=== PATIENT | female | born 1995 | race Caucasian/White ===

== ENCOUNTER 2018-08-27 17:39 | Outpatient (REF) | payer MEDICAID, SELFPAY ==
[2018-08-27 19:50] LABS: Abs Immature Grans 0.03 k/cumm (0.0-0.09); Absolute Basophil Count 0.03 k/cumm (0.0-0.2); Absolute Eosinophil Count 0.13 k/cumm (0.0-0.7); Absolute Lymphocyte Count 0.95 k/cumm (1.2-3.4); Absolute Monocyte Count 0.83 k/cumm (0.11-0.7); Absolute Neutrophil Count 4.95 k/cumm (1.2-6.7); Basophils % 0.4; Eosinophils % 1.9; HCT 42.6 % (36.0-46.0); HGB 13.6 g/dL (12.0-15.5); Immature Grans % 0.4; Lymphocytes % 13.7; Mean Corp. HGB Concentration 31.9 g/dL (32.0-36.0); Mean Corpuscular Volume 90.8 fL (80-95); Mean Platelet Volume 10.8 fL (8.0-11.0); Neutrophils % 71.6; Platelet Count 253 x1000/uL (130-400); RBC 4.69 m/cumm (4.00-5.20); RBC Distribution Width 14.6 % (11.7-14.6); White Blood Cell Count 6.92 k/cumm (4.4-10.8)
[2018-08-27 20:00] LABS: Mono Screening Negative (Negative)
== END 2018-08-27 17:59 ==
LOC: NCHCN 17:39
PROVIDERS: PCP Family Medicine; Visit Provider Family Medicine
DX: R50.9 Fever, unspecified (principal); D64.9 Anemia, unspecified
CPT/HCPCS: 85025; 86308

== ENCOUNTER 2018-09-08 13:04 | Emergency (ER) | payer MEDICAID, SELFPAY ==
[2018-09-08 13:08] VITALS: BP 122/64; PULSE 116; RESP 18; TEMP 36.5; O2SAT 95
--- NOTE | 2018-09-08 13:15 | ED.GENADUL_ITS ---
Discharge Plan Disposition Patient Disposition: HOME Condition: Stable Discharge Details Chief Complaint: RespSymp Clinical Impression: Influenza Reason For Visit: sinus pain / chills Primary Care Provider: Amrit Gao ED Provider: Ana Ray Home Meds and New Rx's Prescriptions: Continued fluoxetine [Prozac] 20 MG capsule 20 mg PO DAILY RF: 0 diphenhydramine HCl [Benadryl] 25 mg Capsule PRNRF: 0 Discharge Instructions Instructions: Influenza (ED) Additional Instructions: Please return immediately to the emergency department if you develop any new or worsening symptoms or if you become otherwise concerned. It is extremely important that you make an appointment to be seen in follow-up for this visit as soon as possible by your primary care doctor. Stand Alone Forms: Work Release Referrals: Amrit Gao [Primary Care Provider] - Discharge Data Discharge Date/Time-TO BE ENTERED AT DEPARTURE: 09/08/18 14:46 Medical Decision Making Della Kirby is a 23 y/o woman with history of depression presenting to the emergency department with 2 weeks of cough, generalized body aches, sore throat, headache worse in the past few days. On exam patient is well and nontoxic appearing. She is no longer tachycardic with heart rate 84, lungs are clear. Throat is mildly erythematous. Concern for influenza, strep, pneumonia, other upper respiratory infection. Exam/history is not consistent with meningitis, sepsis, other acute emergent life-threatening process. Plan for flu swab, rapid strep, chest x-ray, ibuprofen. Will reassess. Chest x-ray personally reviewed by me in conjunction with radiology: No acute process Strep negative. Influenza positive. Given time course, doubt significant benefit from Tamiflu, will hold. No indication for further testing, admission at this time. I had a lengthy discussion with patient regarding her results, home care, return to emergency department precautions, and importance of outpatient follow-up with her primary care doctor. She verbalizes understanding of plan and is amenable. Medical Records Medical records reviewed: Yes I reviewed the patient's medical records. HPI General Mode of arrival: ambulatory . Date/Time Provider Initiated Documentation: 09/08/18 13:14 . Limitations to Documentation: no limitations . Information obtained by: patient, RN notes reviewed and old records reviewed . HPI Narrative: Della Kirby is a 23-year-old woman with a history of depression presenting to the emergency department with cough and malaise. Patient reports that 2-1/2 weeks ago she had fevers, cough, and was seen by her primary care doctor. She had a negative flu swab at that time. She was sent home, and told to return if symptoms worsened. Patient reports that she did have a few days where she began to feel better, and she did not return to her PCP, however in the past 3-4 days her symptoms have worsened and seem worse than when they began 2-1/2 weeks ago now. Patient reports generalized body aches, sore throat, headache. Not the worst headache of her life, head pain is not worse than throat pain. She has had intermittent fevers. Last ibuprofen she took was yesterday. She reports this does not seem to help her symptoms much. Patient reports her cough is severe and dry. She denies shortness of breath. She has nausea but no vomiting, no diarrhea, no rash. Patient reports decreased appetite recently with some decreased p.o. intake. No recent travel. Reports that she used to smoke cigarettes, drinks alcohol occasionally, and smokes marijuana, no other drug use. Related Data Home Medications Medication Instructions Recorded Confirmed fluoxetine [Prozac] 20 mg PO DAILY 11/07/17 09/08/18 diphenhydramine HCl [Benadryl] PRN 09/08/18 Allergies Allergy/AdvReac Type Severity Reaction Status Date / Time No Known Allergies Allergy Unverified 09/08/18 13:11 General Stated Complaint: RespSymp SWEETIE: 4 Review of Systems Review of Systems Constitutional: denies fevers Eyes: denies eye pain ENT: denies facial pain, dental pain, reports sore throat Cardiovascular: denies chest pain Respiratory: denies SOB, reports cough GI: denies abdominal pain, vomiting, diarrhea : denies flank pain MSK: denies back pain, neck pain, arthralgias, reports generalized myalgias Skin: denies rash Neuro: denies headaches, numbness, weakness [facility] Social History Smoking and Tabacco status: Never Exam Narrative Exam Narrative: Constitutional: well and [id number], pleasant, conversing normally HENT: head atraumatic/normocephalic/normal inspection, mucous membranes moist, mild erythema of the posterior pharynx, no exudate or tonsillar edema Eyes: conjunctiva normal, sclera normal, pupils 3mm b/l Neck: no stridor, normal ROM, trachea midline Chest: normal inspection Resp: normal work of breathing, LCTAB Cardio: normal rate, normal rhythm, no murmur appreciated GI: abdomen soft, non-tender, non-distended Back: normal inspection, no rash Skin: warm, dry, normal color, no rash Neuro: alert, not altered, grossly non-focal, normal tone Ext: no edema, no posterior calf TTP Psych: normal mood, normal affect, normal behavior Course Vital Signs Temperature 36.5 C 09/08/18 13:08 Pulse 116 H 09/08/18 13:08 Respiratory Rate 18 09/08/18 13:08 Blood Pressure 122/64 09/08/18 13:08 Pulse Oximetry 95 09/08/18 13:08 Temperature 36.5 C 09/08/18 13:08 Temperature Source Temporal Artery Scan 09/08/18 13:08 Pulse 116 H 09/08/18 13:08 Respiratory Rate 18 09/08/18 13:08 Blood Pressure 122/64 09/08/18 13:08 Blood Pressure Position Sitting 09/08/18 13:08 Pulse Oximetry 95 09/08/18 13:08 Oxygen Delivery Method Room Air 09/08/18 13:08 Oxygen Flow Rate 0 09/08/18 13:08 Pain Level 7 09/08/18 13:08
--- NOTE | 2018-09-08 13:42 | DI.RAD_ITS ---
SYMPTOMS/DIAGNOSIS: COUGH PA AND LATERAL CHEST: Comparison 08/19/17. The heart is normal in size. The lungs are clear. The mediastinal structures and pleura appear intact. CONCLUSION: Normal chest.
[2018-09-08] MEDS: Ibuprofen 400 MG TAB PO (13:53)
== END 2018-09-08 14:46 | disposition home or self-care (01) ==
PROVIDERS: Emergency Provider Student in an Organized Health Care Education/Training Program; PCP Family Medicine
DX: J10.1 Influenza due to other identified influenza virus with other respiratory manifestations (principal)
CPT/HCPCS: 87449; 87880; 99282; 71046; 87081

== ENCOUNTER 2018-12-28 20:23 | Emergency (ER) | payer MEDICAID, SELFPAY ==
[2018-12-28 20:30] VITALS: BP 117/69; PULSE 98; RESP 18; TEMP 37.9; O2SAT 99
--- NOTE | 2018-12-28 20:58 | W.ED.GENAD ---
Discharge Plan Disposition Patient Disposition: HOME Condition: Fair Discharge Details Chief Complaint: Sorethroat Clinical Impression: Strep pharyngitis Primary Care Provider: Ilana Wakefield ED Provider: Glenna aVrgas Home Meds and New Rx's Prescriptions: New amoxicillin 500 mg capsule 500 mg PO BID Qty: 29 RF: 0 Discharge Instructions Instructions: Amoxicillin (By mouth), Pharyngitis (ED) Care Plan Goals: Encourage hydration. Tylenol and ibuprofen as needed for fevers or pain. Please take amoxicillin as prescribed, even if symptoms improve, please take the entire course. Please replace her toothbrush in 48 hours as discussed Please follow-up with primary care in 1 week if not improved. If you develop increased swelling, inability stay hydrated, difficulty breathing/shortness of breath or other new/worsening symptoms please seek care urgently once again Stand Alone Forms: Work Release Referrals: Ilana Wakefield [Primary Care Provider] - Medical Decision Making Patient is 23-year-old female presenting with chief complaint of sore throat. She reports that symptoms began this morning. Has not had any documented fevers but reports that she has had chills throughout the course the day. Diminished appetite which she associates with sore throat. Endorses nausea but no vomiting. No rash. Denies any cough or shortness of breath. Denies any otalgia. Patient has been hydrating. On exam, she does have notable bilateral tonsillar hypertrophy, erythema and exudate. Uvula is midline. No trismus, change in voice. She appears nontoxic. Patient is noted to have a fever at 37.9 ?C, she has not taken anything as of yet for her discomfort or as any antipyretic. Plan to give Tylenol and ibuprofen Rapid strep was positive. Discussed these findings with the patient. We discussed the pros and cons of antibiotic treatment and she wished to move forward with treatment at this time. Patient will be treated with amoxicillin. We discussed new/worsening symptoms that should prompt her to seek care urgently once again. Vies follow-up with primary care if not improving within this week. All of her questions and concerns were addressed and she is in agreement this plan. HPI General Date/Time Provider Initiated Documentation: 12/28/18 20:34. Limitations to Documentation: no limitations. Information obtained by: patient and RN notes reviewed. History of Present Illness 23 year old F presents to the emergency department with the chief complaint of sore throat, with intensity rated at 7. Quality is described as burning, Patient reports no radiation. Patient started experiencing this hour(s) and it has been constant. No relieving factors improve symptom(s), Eating worsens symptoms . Patient notes fever/chills, loss of appetite and nausea/vomiting; denies chest pain, cough, diaphoresis, headaches, rash and shortness of breath. Patient did receive the following treatments prior to arrival, none Related Data Home Medications Medication Instructions Recorded Confirmed amoxicillin 500 mg PO BID #29 cap 12/28/18 Previous Rx's Medication Instructions Recorded amoxicillin 500 mg PO BID #29 cap 12/28/18 Allergies Allergy/AdvReac Type Severity Reaction Status Date / Time No Known Allergies Allergy Unverified 12/28/18 20:33 General Stated Complaint: Sorethroat SWEETIE: 4 Review of Systems Constitutional Reports as per HPI, Reports chills, Reports fatigue, Reports fever(s), Denies headache(s) and Reports poor appetite Eyes Reports as per HPI, Denies eye discharge and Denies irritation ENT Reports as per HPI, Denies change in voice, Denies ear discharge, Denies otalgia, Denies headache(s), Denies hoarseness, Denies mouth pain, Denies nasal congestion, Denies nasal discharge, Denies sinus pain, Denies sinus pressure, Reports sore throat, Denies throat swelling and Denies tongue swelling Cardiovascular Reports as per HPI, Denies chest pain and Denies dyspnea Respiratory Reports as per HPI, Denies cough, Denies hemoptysis and Denies dyspnea Gastrointestinal Reports as per HPI, Denies abdominal pain, Denies change in bowel habits, Reports nausea and Denies vomiting Integumentary/Breasts Reports as per HPI and Denies rash Neurologic Reports as per HPI and Denies headache(s) Endocrine Reports fatigue Allergic/Immunologic Denies throat swelling and Denies tongue swelling [facility] Social History Smoking/Tobacco Use Status: Never Alcohol Intake: current Alcohol Intake frequency: a few times a week Drug use: Occasionally Substance use type: marijuana Do you feel safe at home: Yes Do you feel safe in your relationship?: Yes Exam Const General: cooperative, healthy appearing, comfortable, no acute distress, well developed and well groomed Nutritional Appearance: average body habitus and well nourished Orientation: alert and awake [facility] Head: normal to inspection, normocephalic and atraumatic Ears: hearing grossly normal bilaterally, external ears normal and TM's normal bilaterally General nose exam: external nose normal and nares normal Face and sinus: normal facial exam, sinuses nontender and face symmetric Mouth: oral mucosae normal, lip normal, tongue normal, oropharynx normal and moist mucous membranes Teeth and gingiva: dentition normal Throat: uvula midline and abnormal tonsil bilaterally erythema, exudates and hypertrophy Eyes General: appearance normal, both eyes and all related structures Neck Neck: normal visual inspection, full ROM, no lymphadenopathy and no meningeal signs Resp Effort & Inspection: normal respiratory effort, able to speak in complete sentences and no respiratory distress Auscultation: clear to auscultation bilaterally, no rales, no rhonchi and no wheezes Cardio Rate: regular rate Rhythm: regular rhythm Heart Sounds: S1 normal and S2 normal Skin General skin exam: no rashes or lesions noted Neuro General: alert and awake Cognition: normal cognition Speech: speech normal Gait: normal gait Psych Appearance: grossly normal and well kempt Mental Status: mental status grossly normal Speech and Movement: speech and movement normal Course Vital Signs Temperature 37.9 C H 12/28/18 20:30 Pulse 98 H 12/28/18 20:30 Respiratory Rate 18 12/28/18 20:30 Blood Pressure 117/69 12/28/18 20:30 Pulse Oximetry 99 12/28/18 20:30 Temperature 37.9 C H 12/28/18 20:30 Temperature Source Skin 12/28/18 20:30 Pulse 98 H 12/28/18 20:30 Respiratory Rate 18 12/28/18 20:30 Respiratory Effort Non-Labored 12/28/18 20:32 Blood Pressure 117/69 12/28/18 20:30 Blood Pressure Position Sitting 12/28/18 20:30 Pulse Oximetry 99 12/28/18 20:30 Oxygen Delivery Method Room Air 12/28/18 20:30 Oxygen Flow Rate 0 12/28/18 20:30 Pain Level 7 12/28/18 20:30 Lab/Test Results Lab/Test Results: POC Strep Test-SHREE(Rapid) Start: 12/28/18 20:54 Freq: .Rapid Strep Test Status: Active Protocol: Document 12/28/18 20:54 RD (Rec: 12/28/18 20:54 RD [id number]) Strep test-SHREE(Rapid)-POC POC-Strep test-SHREE (Rapid) Positive POC-Strep test-SHREE (Rapid) Positive
[2018-12-28] MEDS: Acetaminophen 325 MG TAB 650 MG PO (21:26)
[2018-12-28] MEDS: Ibuprofen 600 MG TAB PO (21:26)
[2018-12-28] MEDS: Amoxicillin 500 MG CAP PO (21:26)
--- NOTE | 2018-12-28 21:47 | ED.GENADUL_ITS ---
Discharge Plan Disposition Patient Disposition: HOME Condition: Fair Discharge Details Chief Complaint: Sorethroat Clinical Impression: Strep pharyngitis Primary Care Provider: Ilana Wakefield ED Provider: Glenna Vargas Home Meds and New Rx's Prescriptions: New amoxicillin 500 mg capsule 500 mg PO BID Qty: 29 RF: 0 Discharge Instructions Instructions: Amoxicillin (By mouth), Pharyngitis (ED) Care Plan Goals: Encourage hydration. Tylenol and ibuprofen as needed for fevers or pain. Please take amoxicillin as prescribed, even if symptoms improve, please take the entire course. Please replace her toothbrush in 48 hours as discussed Please follow-up with primary care in 1 week if not improved. If you develop increased swelling, inability stay hydrated, difficulty breathing/shortness of breath or other new/worsening symptoms please seek care urgently once again Stand Alone Forms: Work Release Referrals: Ilana Wakefield [Primary Care Provider] - Medical Decision Making Patient is 23-year-old female presenting with chief complaint of sore throat. She reports that symptoms began this morning. Has not had any documented fevers but reports that she has had chills throughout the course the day. Diminished appetite which she associates with sore throat. Endorses nausea but no vomiting. No rash. Denies any cough or shortness of breath. Denies any otalgia. Patient has been hydrating. On exam, she does have notable bilateral tonsillar hypertrophy, erythema and exudate. Uvula is midline. No trismus, change in voice. She appears nontoxic. Patient is noted to have a fever at 37.9 ?C, she has not taken anything as of yet for her discomfort or as any antipyretic. Plan to give Tylenol and ibuprofen Rapid strep was positive. Discussed these findings with the patient. We discussed the pros and cons of antibiotic treatment and she wished to move forward with treatment at this time. Patient will be treated with amoxicillin. We discussed new/worsening symptoms that should prompt her to seek care urgently once again. Vies follow-up with primary care if not improving within this week. All of her questions and concerns were addressed and she is in agreement this plan. HPI General Date/Time Provider Initiated Documentation: 12/28/18 20:34 . Limitations to Documentation: no limitations . Information obtained by: patient and RN notes reviewed . History of Present Illness 23 year old F presents to the emergency department with the chief complaint of sore throat, with intensity rated at 7. Quality is described as burning, Patient reports no radiation. Patient started experiencing this hour(s) and it has been constant. No relieving factors improve symptom(s), Eating worsens symptoms . Patient notes fever/chills, loss of appetite and nausea/vomiting; denies chest pain, cough, diaphoresis, headaches, rash and shortness of breath. Patient did receive the following treatments prior to arrival, none Related Data Home Medications Medication Instructions Recorded Confirmed amoxicillin 500 mg PO BID #29 cap 12/28/18 Previous Rx's Medication Instructions Recorded amoxicillin 500 mg PO BID #29 cap 12/28/18 Allergies Allergy/AdvReac Type Severity Reaction Status Date / Time No Known Allergies Allergy Unverified 12/28/18 20:33 General Stated Complaint: Sorethroat SWEETIE: 4 Review of Systems Constitutional Reports as per HPI, Reports chills, Reports fatigue, Reports fever(s), Denies headache(s) and Reports poor appetite Eyes Reports as per HPI, Denies eye discharge and Denies irritation ENT Reports as per HPI, Denies change in voice, Denies ear discharge, Denies otalgia, Denies headache(s), Denies hoarseness, Denies mouth pain, Denies nasal congestion, Denies nasal discharge, Denies sinus pain, Denies sinus pressure, Reports sore throat, Denies throat swelling and Denies tongue swelling Cardiovascular Reports as per HPI, Denies chest pain and Denies dyspnea Respiratory Reports as per HPI, Denies cough, Denies hemoptysis and Denies dyspnea Gastrointestinal Reports as per HPI, Denies abdominal pain, Denies change in bowel habits, Reports nausea and Denies vomiting Integumentary/Breasts Reports as per HPI and Denies rash Neurologic Reports as per HPI and Denies headache(s) Endocrine Reports fatigue Allergic/Immunologic Denies throat swelling and Denies tongue swelling [facility] Social History Smoking/Tobacco Use Status: Never Alcohol Intake: current Alcohol Intake frequency: a few times a week Drug use: Occasionally Substance use type: marijuana Do you feel safe at home: Yes Do you feel safe in your relationship?: Yes Exam Const General: cooperative, healthy appearing, comfortable, no acute distress, well developed and well groomed Nutritional Appearance: average body habitus and well nourished Orientation: alert and awake [facility] Head: normal to inspection, normocephalic and atraumatic Ears: hearing grossly normal bilaterally, external ears normal and TM's normal bilaterally General nose exam: external nose normal and nares normal Face and sinus: normal facial exam, sinuses nontender and face symmetric Mouth: oral mucosae normal, lip normal, tongue normal, oropharynx normal and moist mucous membranes Teeth and gingiva: dentition normal Throat: uvula midline and abnormal tonsil bilaterally erythema, exudates and hypertrophy Eyes General: appearance normal, both eyes and all related structures Neck Neck: normal visual inspection, full ROM, no lymphadenopathy and no meningeal signs Resp Effort & Inspection: normal respiratory effort, able to speak in complete sentences and no respiratory distress Auscultation: clear to auscultation bilaterally, no rales, no rhonchi and no wheezes Cardio Rate: regular rate Rhythm: regular rhythm Heart Sounds: S1 normal and S2 normal Skin General skin exam: no rashes or lesions noted Neuro General: alert and awake Cognition: normal cognition Speech: speech normal Gait: normal gait Psych Appearance: grossly normal and well kempt Mental Status: mental status grossly normal Speech and Movement: speech and movement normal Course Vital Signs Temperature 37.9 C H 12/28/18 20:30 Pulse 98 H 12/28/18 20:30 Respiratory Rate 18 12/28/18 20:30 Blood Pressure 117/69 12/28/18 20:30 Pulse Oximetry 99 12/28/18 20:30 Temperature 37.9 C H 12/28/18 20:30 Temperature Source Skin 12/28/18 20:30 Pulse 98 H 12/28/18 20:30 Respiratory Rate 18 12/28/18 20:30 Respiratory Effort Non-Labored 12/28/18 20:32 Blood Pressure 117/69 12/28/18 20:30 Blood Pressure Position Sitting 12/28/18 20:30 Pulse Oximetry 99 12/28/18 20:30 Oxygen Delivery Method Room Air 12/28/18 20:30 Oxygen Flow Rate 0 12/28/18 20:30 Pain Level 7 12/28/18 20:30 Lab/Test Results Lab/Test Results: POC Strep Test-SHREE(Rapid) Start: 12/28/18 20:5 4 Freq: .Rapid Strep Test Status: Active Protocol: Document 06/09/19 20:54 RD (Rec: 12/28/18 20:54 RD [id number]) Strep test-SHREE(Rapid)-POC POC-Strep test-SHREE (Rapid) Positive POC-Strep test-SHREE (Rapid) Positive
== END 2018-12-28 22:06 | disposition home or self-care (01) ==
PROVIDERS: Emergency Provider Physician Assistant; PCP Nurse Practitioner Family
DX: J02.0 Streptococcal pharyngitis (principal)
CPT/HCPCS: 87880; 99283

== ENCOUNTER 2019-01-02 17:11 | Outpatient (REF) | payer MEDICAID, SELFPAY | END 2019-01-02 17:31 | LOC: NCHCN 17:11 | PROVIDERS: PCP Nurse Practitioner Family; Visit Provider Family Medicine | DX: J02.9 Acute pharyngitis, unspecified (principal) | CPT/HCPCS: 87070 ==

== ENCOUNTER 2019-08-03 18:43 | Outpatient (REF) | payer MEDICAID, SELFPAY ==
[2019-08-03 18:37] LABS: HCT 35.9 % (36.0-46.0); HGB 11.6 g/dL (12.0-15.5); Mean Corp. HGB Concentration 32.3 g/dL (32.0-36.0); Mean Corpuscular Hemoglobin 28.8 pg (27.0-33.0); Mean Corpuscular Volume 89.1 fL (80-95); Mean Platelet Volume 10.7 fL (8.0-11.0); Platelet Count 256 x1000/uL (130-400); RBC 4.03 m/cumm (4.00-5.20); RBC Distribution Width 12.4 % (11.7-14.6); White Blood Cell Count 4.52 k/cumm (4.4-10.8)
[2019-08-03 18:48] LABS: TSH (W/Ref FT4) 1.97 uIU/mL (0.36-3.74)
[2019-08-03 18:52] LABS: Iron 38 ug/dL (50-170); Total Iron Binding Capacity 314 ug/dL (250-450); Transferrin Sat 12 % (15-50)
== END 2019-08-03 19:03 ==
LOC: NCHCN 18:43
PROVIDERS: PCP Nurse Practitioner Family; Visit Provider Nurse Practitioner Family
DX: R53.83 Other fatigue (principal); Z86.2 Personal history of diseases of the blood and blood-forming organs and certain disorders involving the immune mechanism
CPT/HCPCS: 85027; 83540; 83550; 84443

== ENCOUNTER 2019-12-19 03:44 | Emergency (ER) | payer MEDICAID, SELFPAY ==
[2019-12-19] VITALS (7 sets, daily range): BP systolic 109–117; BP diastolic 68–72; PULSE 58–74; RESP 13–19; TEMP 36.8; O2SAT 94–99
--- NOTE | 2019-12-19 03:56 | ED.GENADUL_ITS ---
Discharge Plan Disposition Patient Disposition: HOME Condition: Stable Discharge Details Chief Complaint: Abd Prob Clinical Impression: Abdominal pain, Hangover effect Primary Care Provider: Ilana Wakefield ED Provider: Jian De Anda Home Meds and New Rx's Prescriptions: New ondansetron 4 mg tablet,disintegrating 4 mg PO Q8H PRN (Reason: nausea and vomiting) Qty: 30 RF: 0 Discharge Instructions Instructions: Abdominal Pain (ED) Additional Instructions: you can have 1000mg tylenol and 600mg ibuprofen every 6 hours for pain as needed if you feel more ill or have persistent vomit despite the medication return to the emergency department Medical Decision Making 24 yo female who denies any significant pmhx comes in with cc of n/v and mid to lower abdominal pain starting a few hours ago. She states she doesn't normally drink alcohol often but yesterday over the course of the day had 8 or more twisted teas. She now has had mid abdominal pain and n/v and denies any drug use other than marijuana. She has mid and lower mid abdominal tenderness, soft without distention. Denies fevers, vaginal bleeding or d/c. Suspect this is re lated to alcohol use but will evaluate for pancreatitis and given the pain location obtain ct to eval for possible appendicitis though unlikely given no guarding or rebound on exam. imaging and labs unremarkble and she feels better with toradol zofran and IVF and has no tenderness on abdominal exam. Suspect alcohol induced hangover. Will d/c and return precautions given Differential Diagnosis Differential Diagnosis: pancreatitis, appendicitis, cholecystitis, hangover Imaging Data Radiologic Study: Attestation: I personally reviewed and interpreted this imaging study as follows: Imaging: CT Scan Radiologist's impression: IMPRESSION: No acute findings. Lab Data Lab results reviewed: Yes I reviewed the patient's lab results. HPI General Mode of arrival: ambulatory . Date/Time Provider Initiated Documentation: 12/19/19 03:45 . Limitations to Documentation: no limitations . Information obtained by: patient . History of Present Illness 24 year old F presents to the emergency department with the chief complaint of nausea and vomit, described as moderate, and it has been constant. No relieving factors improve symptom(s), No exacerbating factors reported . Patient did receive the following treatments prior to arrival, none Related Data Home Medications Medication Instructions Recorded Confirmed ondansetron 4 mg PO Q8H PRN #30 tab 12/19/19 Previous Rx's Medication Instructions Recorded ondansetron 4 mg PO Q8H PRN #30 tab 12/19/19 Allergies Allergy/AdvReac Type Severity Reaction Status Date / Time No Known Allergies Allergy Unverified 12/19/19 04:19 General SWEETIE: 4 Review of Systems All systems reviewed & are unremarkable except as noted in HPI and below Constitutional Constitutional: Denies fever(s) and Denies weakness Cardiovascular Cardiovascular: Denies chest pain and Denies dyspnea Respiratory Respiratory: Denies cough and Denies dyspnea Genitourinary Genitourinary: Denies dysuria Neurologic Neurologic: Denies weakness Psychiatric Psychiatric: Denies depression [facility] Social History Smoking/Tobacco Use Status: Never Alcohol Intake: current Alcohol Intake frequency: a few times a week Drug use: Daily Substance use type: marijuana Do you feel safe at home: Yes Do you feel safe in your relationship?: Yes Exam Const General: no acute distress Orientation: alert HENMT Head: normal to inspection Ears: external ears normal General nose exam: external nose normal Mouth: moist mucous membranes Eyes General: appearance normal, both eyes and all related structures Neck Neck: normal visual inspection Resp Effort & Inspection: normal respiratory effort and able to speak in complete sentences Cardio Rate: regular rate GI Palpation: soft Skin General skin exam: no rashes or lesions noted Neuro General: patient alert and patient oriented x3 Extrem General: normal to inspection Psych Mental Status: mental status grossly normal
[2019-12-19] MEDS: Ketorolac 15 MG/ML VIAL IVP (04:08)
[2019-12-19] MEDS: Ondansetron 4 MG/2 ML VIAL IVP (04:09)
[2019-12-19] MEDS: Normal Saline 1,000 ML 1000 ML IV (04:09)
[2019-12-19] MEDS: Normal Saline Flush 10 ML SYR IVP ×2 (04:09→04:38)
[2019-12-19 04:11] LABS: Bilirubin Negative (Negative); Blood Negative (Negative); Clarity Clear (Clear); Glucose Negative (Negative); Ketones Trace mg/dL (Negative); Leukocyte Esterase Negative (Negative); Nitrite Negative (Negative); Specific Gravity 1.015 (1.005-1.025); Urobilinogen 0.2 EU/dL (Up TO 0.2); pH >= 9.0 (5-8)
[2019-12-19 04:13] LABS: Abs Immature Grans 0.02 k/cumm (0.0-0.09); Absolute Eosinophil Count 0.06 k/cumm (0.0-0.7); Absolute Lymphocyte Count 1.36 k/cumm (1.2-3.4); Absolute Neutrophil Count 9.35 k/cumm (1.2-6.7); Basophils % 0.4; Eosinophils % 0.5; HCT 31.3 % (36.0-46.0); HGB 10.4 g/dL (12.0-15.5); Immature Grans % 0.2 %; Mean Corp. HGB Concentration 33.2 g/dL (32.0-36.0); Mean Corpuscular Hemoglobin 28.7 pg (27.0-33.0); Mean Corpuscular Volume 86.2 fL (80-95); Mean Platelet Volume 10.8 fL (8.0-11.0); Monocytes % 4.7; Neutrophils % 82.2; Platelet Count 264 x1000/uL (130-400); RBC 3.63 m/cumm (4.00-5.20); RBC Distribution Width 12.9 % (11.7-14.6); White Blood Cell Count 11.37 k/cumm (4.4-10.8)
[2019-12-19 04:32] LABS: Absolute Basophil Count 0.05 k/cumm (0.0-0.2); Absolute Monocyte Count 0.53 k/cumm (0.11-0.7)
[2019-12-19 04:37] LABS: Bacteria Negative HPF (Negative); C & S Indicated? No; Casts Negative LPF (Negative); Crystals Negative HPF (Negative); Epithelial Cells Rare HPF (Negative); Mucus Trace (Negative); Other Cells Negative (Negative); RBC Negative HPF (0-2); WBC 0-2 HPF (0-5)
--- NOTE | 2019-12-19 04:38 | DI.CT_ITS ---
EXAM: CT ABDOMEN PELVIS W INDICATION: mid to lower abdominal pain. COMPARISON: CT ABD PELVIS WITH CONTRAST from 11/07/2017 TECHNIQUE: FINDINGS: CT examination of the abdomen and pelvis was performed with a bolus infusion of 100 cc of Omnipaque 3 50. Images obtained through the lung bases are unremarkable. Liver, spleen and pancreas appear normal . Gallbladder and bile ducts are CT normal. Adrenals and kidneys are unremarkable. Urinary bladder essentially empty. Abdominal aorta is of normal diameter and no major vascular abnormality is seen. No abdominal wall hernia. No abdominal or pelvic adenopathy. H[employer] structures appear intact. Appendix is normal. No evidence of diverticulitis or bowel obstruction. IMPRESSION: Negative examination of the abdomen and pelvis. RADIATION DOSE DELIVERED: 430.35mGy.cm Total DLP
[2019-12-19 04:40] LABS: Bilirubin, Direct 0.16 mg/dL (0.00-0.20); Bilirubin, Total 0.7 mg/dL (0.2-1.0)
[2019-12-19] MEDS: Normal Saline - Diluent 50 ML VIAL IV (04:41)
[2019-12-19 04:47] LABS: Lipase 77 U/L (73-393); Magnesium 1.8 mg/dL (1.8-2.4)
[2019-12-19] MEDS: Omnipaque 350 MG/ML 100 ML BTL IJ (04:47)
--- NOTE | 2019-12-19 04:55 | DI.VRAD_ITS ---
PROCEDURE INFORMATION: Exam: CT Abdomen And Pelvis With Contrast Exam date and time: 12/19/2019 3:56 AM Age: 24 years old Clinical indication: Abdominal pain; Localized; Lower TECHNIQUE: Imaging protocol: Computed tomography of the abdomen and pelvis with intravenous contrast. Radiation optimization: All CT scans at this facility use at least one of these dose optimization techniques: automated exposure control; mA and/or kV adjustment per patient size (includes targeted exams where dose is matched to clinical indication); or iterative reconstruction. Contrast material: [id number]; Contrast volume: 69 ml; Contrast route: IV LAC 18G; COMPARISON: CT ABD PELVIS WITH CONTRAST 11/07/2017 11:13 PM FINDINGS: Liver: Normal. No mass. Gallbladder and bile ducts: Normal. No calcified stones. No ductal dilation. Pancreas: Normal. No ductal dilation. Spleen: Normal. No splenomegaly. Adrenals: Normal. No mass. Kidneys and ureters: Normal. No hydronephrosis. Stomach and bowel: Unremarkable. No obstruction. No mucosal thickening. Appendix: No evidence of appendicitis. Intraperitoneal space: Unremarkable. No free air. No significant fluid collection. Vasculature: Unremarkable. No abdominal aortic aneurysm. Lymph nodes: Unremarkable. No enlarged lymph nodes. Bladder: Unremarkable as visualized. Reproductive: Unremarkable as visualized. Bones/joints: Unremarkable. No acute fracture. Soft tissues: Unremarkable. IMPRESSION: No acute findings. Dictated and Authenticated by: Jian Lorenzana MD. Ordering:SHAUNNA Villar MD
[2019-12-19 05:01] LABS: ETHANOL BLOOD < 3.0 mg/dL (<3)
== END 2019-12-19 05:20 | disposition home or self-care (01) ==
PROVIDERS: Emergency Provider Emergency Medicine; PCP Nurse Practitioner Family
DX: R11.2 Nausea with vomiting, unspecified (principal); F10.129 Alcohol abuse with intoxication, unspecified; R10.33 Periumbilical pain
CPT/HCPCS: 36415; 81025; 83690; 96361; 96374; 96375; 99285; 74177; 80320; 81003; 81015; 82247; 82248; 83735; 85025; 99284; J1885; J2405; J3490

== ENCOUNTER 2019-12-21 10:05 | Outpatient (REF) | payer MEDICAID, SELFPAY ==
[2019-12-21 16:09] LABS: Iron 22 ug/dL (50-170); Total Iron Binding Capacity 305 ug/dL (250-450); Transferrin Sat 7 % (15-50)
[2019-12-21 16:11] LABS: ALT 30 U/L (14-59); AST 19 U/L (15-37); Albumin 4.1 g/dL (3.4-5.0); Alkaline Phosphatase 49 U/L (46-116); Anion Gap 6.9 mmol/L (3-11); BUN 12 mg/dL (7-18); Bilirubin, Total 0.6 mg/dL (0.2-1.0); CO2 28.1 mmol/L (21.0-32.0); CREATININE 0.77 mg/dL (0.55-1.02); Chloride 105 mmol/L (98-107); Glucose 88 mg/dL (74-106); Potassium 3.9 mmol/L (3.5-5.1); Sodium 140 mmol/L (136-145)
== END 2019-12-21 10:25 ==
LOC: NCHCN 10:05
PROVIDERS: PCP Nurse Practitioner Family; Visit Provider Nurse Practitioner
DX: R53.83 Other fatigue (principal)
CPT/HCPCS: 80053; 82306; 83540; 83550